=== PATIENT | female | born 1950 | race African-American/Black ===

== ENCOUNTER 2018-03-02 08:23 | Inpatient (IN) | payer BC ==
[~2018-03-02] VITALS: Ht 160 cm; Wt 72.6 kg
[2018-03-02] MEDS ORDERED: VERA80TA2 PO (08:41)
[2018-03-02] MEDS ORDERED: OMEP10CA3 PO (08:41)
[2018-03-02] MEDS ORDERED: METO-239 PO (08:41)
[2018-03-02] MEDS ORDERED: OMEG1CAP38 PO (08:41)
[2018-03-02] MEDS ORDERED: CRESTOR5 MG PO (08:41)
[2018-03-02] MEDS ORDERED: ASPI-630 PO (08:41)
--- NOTE | 2018-03-02 08:41 | EKG ---
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
[2018-03-02 08:49] LABS: BASO % 1 % (0-3); EOS # 0.1 x10^3/uL (0.0-0.7); EOS % 2 % (0-3); HEMATOCRIT 42.8 % (36.0-47.0); HEMOGLOBIN 14.4 g/dL (12.0-15.5); LYMPH # 1.8 x10^3/uL (1.0-4.8); LYMPH % 32 % (24-48); MEAN CORPUSCULAR HEMOGLOBIN 30 pg (25-35); MEAN CORPUSCULAR HGB CONC 34 g/dL (31-37); MEAN CORPUSCULAR VOLUME 90 fL (79-100); MONO # 0.4 x10^3/uL (0.0-1.1); MONO % 8 % (0-9); NEUT # 3.1 x10^3uL (1.8-7.7); NEUT % 57 % (31-73); PLATELET COUNT 187 x10^3/uL (140-400); RED BLOOD COUNT 4.75 x10^6/uL (3.50-5.40); WHITE BLOOD COUNT 5.4 x10^3/uL (4.0-11.0)
--- NOTE | 2018-03-02 08:57 | RAD ---
Chest AP portable at 0844: Reason for examination: Mid chest pain. Comparison is made to previous study dated 02/26/2013. The heart size is normal. Mediastinum is unremarkable. Lung dasilva are clear. No acute bony abnormalities are seen. Impression: No acute cardiopulmonary disease. Electronically signed by: Alexsandra Marsh MD (03/02/2018 8:53 AM) [facility]
[2018-03-02 08:58] LABS: CALCIUM 8.9 mg/dL (8.5-10.1); CREATININE 0.7 mg/dL (0.6-1.0); GFR 83.7; POTASSIUM 3.6 mmol/L (3.5-5.1)
--- NOTE | 2018-03-02 08:58 | PHYS DOC ---
Adult General Chief Complaint Chief Complaint: CHEST PAIN-CARDIAC NATURE HPI HPI Patient is a 68 year old female who presents with chest pain. Patient c/o sternal chest pressure which has been stuttering over the last couple weeks. Pain became more constant and severe last night and persisted until she awoke this am. No shortness of breath. No SHEPARD, orthopnea, or LE edema. No aggravating or alleviating factors. Patient had [facility] in 2011 and states she had one stent placed. No recent fever, chills, cough. Review of Systems Review of Systems Constitutional: Denies fever or chills Eyes: Denies change in visual acuity, redness, or eye pain HENT: Denies nasal congestion or sore throat Respiratory: Denies cough or shortness of breath Cardiovascular: No additional information not addressed in HPI GI: Denies abdominal pain, nausea, vomiting, bloody stools or diarrhea : Denies dysuria or hematuria Musculoskeletal: Denies back pain or joint pain Integument: Denies rash or skin lesions Neurologic: Denies headache, focal weakness or sensory changes Endocrine: Denies polyuria or polydipsia All other systems were reviewed and found to be within normal limits, except as documented in this note. Current Medications Current Medications Current Medications Medications (Trade) Dose Ordered Sig/Jese Start Time Stop Time Status Last Admin Dose Admin Aspirin (Children'S Aspirin) 324 mg 1X ONCE 03/02/18 09:00 03/02/18 09:02 DC 03/02/18 09:00 324 MG Nitroglycerin (Nitrostat) 0.4 mg PRN Q5MIN PRN 03/02/18 08:45 03/02/18 09:52 DC 03/02/18 09:37 0.4 MG Allergies Allergies Allergies Coded Allergies Type Severity Reaction Last Updated Verified Sulfa (Sulfonamide Antibiotics) Allergy Intermediate Hives 03/02/18 Yes erythromycin base Adverse Reaction Intermediate Nausea and Vomiting 03/02/18 Yes Physical Exam Physical Exam Constitutional: Well developed, well nourished, no acute distress, non-toxic appearance HENT: Normocephalic, atraumatic, bilateral external ears normal, oropharynx moist Eyes: PERRLA, EOMI, conjunctiva normal Neck: Normal range of motion, no tenderness Cardiovascular:Heart rate regular rhythm, no murmur Lungs & Thorax: Bilateral breath sounds clear to auscultation Abdomen: Bowel sounds normal, soft Skin: Warm, dry, no erythema, no rash Back: No tenderness, no CVA tenderness Extremities: trace edema bilateral LE's Neurologic: Alert and oriented X 3 Psychologic: Affect normal Current Patient Data Vital Signs Vital Signs Date Time Temp Pulse Resp B/P (MAP) Pulse Ox O2 Delivery O2 Flow Rate FiO2 03/02/18 08:27 97.7 68 18 164/89 (114) 100 Room Air 97.7 Lab Values Laboratory Tests Test 03/02/18 08:40 White Blood Count 5.4 x10^3/uL (4.0-11.0) Red Blood Count 4.75 x10^6/uL (3.50-5.40) Hemoglobin 14.4 g/dL (12.0-15.5) Hematocrit 42.8 % (36.0-47.0) Mean Corpuscular Volume 90 fL (79-100) Mean Corpuscular Hemoglobin 30 pg (25-35) Mean Corpuscular Hemoglobin Concent 34 g/dL (31-37) Red Cell Distribution Width 14.0 % (11.5-14.5) Platelet Count 187 x10^3/uL (140-400) Neutrophils (%) (Auto) 57 % (31-73) Lymphocytes (%) (Auto) 32 % (24-48) Monocytes (%) (Auto) 8 % (0-9) Eosinophils (%) (Auto) 2 % (0-3) Basophils (%) (Auto) 1 % (0-3) Neutrophils # (Auto) 3.1 x10^3uL (1.8-7.7) Lymphocytes # (Auto) 1.8 x10^3/uL (1.0-4.8) Monocytes # (Auto) 0.4 x10^3/uL (0.0-1.1) Eosinophils # (Auto) 0.1 x10^3/uL (0.0-0.7) Basophils # (Auto) 0.0 x10^3/uL (0.0-0.2) Prothrombin Time 12.1 SEC (11.7-14.0) Prothrombin Time INR 0.9 (0.8-1.1) PTT 28 SEC (24-38) Sodium Level 140 mmol/L (136-145) Potassium Level 3.6 mmol/L (3.5-5.1) Chloride Level 103 mmol/L (98-107) Carbon Dioxide Level 27 mmol/L (21-32) Anion Gap 10 (6-14) Blood Urea Nitrogen 24 mg/dL (7-20) H Creatinine 0.7 mg/dL (0.6-1.0) Estimated GFR (Cockcroft-Gault) 83.7 Glucose Level 105 mg/dL (70-99) H Calcium Level 8.9 mg/dL (8.5-10.1) Troponin I Quantitative 0.174 ng/mL (0.000-0.055) KX-Rnw-J-Type Natriuretic Peptide 129 pg/mL (0-124) H Laboratory Tests 03/02/18 08:40 Laboratory Tests 03/02/18 08:40 EKG EKG No STEMI Interpretation Time: 08:30 Radiology/Procedures Radiology/Procedures no acute findings on CXR Course & Med Decision Making Course & Med Decision Making Pertinent Labs and Imaging studies reviewed. (See chart for details) Patient is seen immediately on arrival to her room. + CP. Nitro and ASA ordered. EKG does not reveal STEMI. 09:30: All results are reviewed. The patient does not have acute changes in her EKG. She does have elevated troponin however. She is ordered to have heparin bolus and drip. I discussed this patient with the hospital physician, Dr. Quinn, and the patient will be admitted. Cardiology consult was placed. Dragon Disclaimer Dragon Disclaimer This electronic medical record was generated, in whole or in part, using a voice recognition dictation system. Departure Departure Referrals: ALYSSA GROSS (PCP) VANESSA LYON DO Mar 02, 2018 08:58
[2018-03-02] MEDS: NITROGLYCERIN SUBLINGUAL 0.4 MG BOTTLE OF 25. SL PRN ×2 (09:00→09:37)
[2018-03-02] MEDS ORDERED: ASPIRIN CHEWABLE 81 MG TABLET. PO ONE (09:00)
[2018-03-02 09:03] LABS: PROTHROMBIN TIME PATIENT 12.1 SEC (11.7-14.0)
[2018-03-02] MEDS ORDERED: MORPHINE SULFATE 4 MG/ML VIAL. IV PRN (10:00)
[2018-03-02] MEDS ORDERED: ONDANSETRON PF 4 MG/2 ML VIAL. IV PRN (10:00)
[2018-03-02] MEDS ORDERED: NITROGLYCERIN SUBLINGUAL 0.4 MG BOTTLE OF 25. SL PRN (10:00)
[2018-03-02] MEDS ORDERED: HEPARIN for IV BOLUS 10,000 UNIT/10 ML VIAL. IV ONE (10:00)
[2018-03-02] MEDS ORDERED: HEPARIN 25,000UTS/500ML PREMIX 500 ML IV PRN (10:00)
[2018-03-02 11:32] VITALS: BP 128/72
[2018-03-02] MEDS ORDERED: VERA180T49 PO (11:41)
[2018-03-02] MEDS ORDERED: CRESTOR40 MG PO (11:41)
[2018-03-02] MEDS ORDERED: OMEP20TA8 PO (11:41)
[2018-03-02] MEDS: VERAPAMIL SR 180 MG TABLET.ER. PO SCH (11:59)
[2018-03-02] MEDS: METOPROLOL SUCC 24HR ER 25 MG TAB.ER.24H. PO SCH (11:59)
[2018-03-02] MEDS: PANTOPRAZOLE 40 MG TABLET.DR. PO SCH (11:59)
--- NOTE | 2018-03-02 12:19 | PDOC2 ---
CONSULT Date of Consult Date of Consult DATE: 03/02/18 TIME: 12:18 Reason for Consult Reason for Consult: Chest pain Referring Physician Referring Physician: Dr. Quinn Identification/Chief Complaint Chief Complaint Chest pain Source Source: Chart review, Patient History of Present Illness Reason for Visit: 68-year-old female presented with retrosternal chest pressure slightly worse with exertion has been going on for last 1-2 weeks but was worse last night. The pain was relieved with nitroglycerin in the emergency room. She denied any orthopnea/PND, palpitations or syncope. Past Medical History Past Medical History Coronary artery disease s/p PCI/stent in 2010 Hypertension Hyperlipidemia Gastroesophageal reflux disease Family History Family History Coronary artery disease and hypertension Social History Social History Patient is a nonsmoker and a nondrinker Current Medications Current Medications Current Medications Aspirin (Children'S Aspirin) 324 mg 1X ONCE PO Last administered on 03/02/18at 09:00; Start 03/02/18 at 09:00; Stop 03/02/18 at 09:02; Status DC Nitroglycerin (Nitrostat) 0.4 mg PRN Q5MIN PRN SL CHEST PAIN Last administered on 03/02/18at 09:37; Start 03/02/18 at 08:45; Stop 03/02/18 at 09:52; Status DC Heparin Sodium (Porcine) (Heparin Sodium) 4,000 unit 1X ONCE IV Last administered on 03/02/18at 10:17; Start 03/02/18 at 10:00; Stop 03/02/18 at 10:01 ; Status DC Heparin Sodium/ Dextrose 500 ml @ 0 mls/hr CONT PRN IV SEE I/O RECORD Last administered on 03/02/18at 10:25; Start 03/02/18 at 10:00 Ondansetron HCl (Zofran) 4 mg PRN Q8HRS PRN IV NAUSEA/VOMITING; Start 03/02/18 at 10:00; Stop 03/03/18 at 09:59 Morphine Sulfate (Morphine Sulfate) 4 mg PRN Q2HR PRN IV PAIN Last administered on 03/02/18at 10:58; Start 03/02/18 at 10:00; Stop 03/03/18 at 09:59 Nitroglycerin (Nitrostat) 0.4 mg PRN Q5MIN PRN SL CHEST PAIN; Start 8/19/18 at 10:00; Stop 03/03/18 at 09:59 Aspirin (Children'S Aspirin) 81 mg DAILY PO ; Start 03/03/18 at 09:00 Metoprolol Succinate (Toprol Xl) 25 mg DAILY PO ; Start 03/02/18 at 12:30 Pantoprazole Sodium (Protonix) 40 mg DAILYAC PO ; Start 03/02/18 at 12:30 Verapamil HCl (Calan Sr) 180 mg DAILY PO ; Start 03/02/18 at 12:30 Active Scripts Active Reported Verapamil Er (Verapamil Hcl) 180 Mg Tablet.er 180 Mg PO DAILY Omeprazole 20 Mg Tablet.dr 20 Mg PO DAILY Crestor (Rosuvastatin Calcium) 40 Mg Tablet 40 Mg PO HS [place] 3 Fish Oil Softgel ([place]-3 Fatty Acids/Fish Oil) 1 Each Capsule.dr Unknown Dose PO DAILY Metoprolol Succinate ( Xl ) (Metoprolol Succinate) 25 Mg Tab.er.24h Unknown Dose PO DAILY Aspirin 81 Mg Tab.chew 1 Tab PO DAILY Allergies Allergies: Coded Allergies: Sulfa (Sulfonamide Antibiotics) (Verified Allergy, Intermediate, Hives, ) erythromycin base (Verified Adverse Reaction, Intermediate, Nausea and Vomiting, 03/02/18) ROS PSYCHOLOGICAL ROS: No: Hallucinations Eyes: No Loss of vision HEENT: No: Epistaxis Respiratory: No: Hemoptysis Cardiovascular: yes Chest Pain Gastrointestinal: No Vomiting Genitourinary: No Hematuria Neurological: No Seizures Skin: No Rash Physical Exam General: Alert, Oriented X3 HEENT: Atraumatic, PERRLA Lungs: Clear to auscultation Heart: Regular rate Abdomen: Soft Extremities: No edema Psych/Mental Status: Mood NL Vitals VITALS Vital Signs Date Time Temp Pulse Resp B/P (MAP) Pulse Ox O2 Delivery O2 Flow Rate FiO2 03/02/18 11:34 16 98 Room Air 03/02/18 11:32 98.7 55 128/72 (90) 98.7 Labs Labs Laboratory Tests Test 03/02/18 08:40 White Blood Count 5.4 x10^3/uL (4.0-11.0) Red Blood Count 4.75 x10^6/uL (3.50-5.40) Hemoglobin 14.4 g/dL (12.0-15.5) Hematocrit 42.8 % (36.0-47.0) Mean Corpuscular Volume 90 fL (79-100) Mean Corpuscular Hemoglobin 30 pg (25-35) Mean Corpuscular Hemoglobin Concent 34 g/dL (31-37) Red Cell Distribution Width 14.0 % (11.5-14.5) Platelet Count 187 x10^3/uL (140-400) Neutrophils (%) (Auto) 57 % (31-73) Lymphocytes (%) (Auto) 32 % (24-48) Monocytes (%) (Auto) 8 % (0-9) Eosinophils (%) (Auto) 2 % (0-3) Basophils (%) (Auto) 1 % (0-3) Neutrophils # (Auto) 3.1 x10^3uL (1.8-7.7) Lymphocytes # (Auto) 1.8 x10^3/uL (1.0-4.8) Monocytes # (Auto) 0.4 x10^3/uL (0.0-1.1) Eosinophils # (Auto) 0.1 x10^3/uL (0.0-0.7) Basophils # (Auto) 0.0 x10^3/uL (0.0-0.2) Prothrombin Time 12.1 SEC (11.7-14.0) Prothromb Time International Ratio 0.9 (0.8-1.1) Activated Partial Thromboplast Time 28 SEC (24-38) Sodium Level 140 mmol/L (136-145) Potassium Level 3.6 mmol/L (3.5-5.1) Chloride Level 103 mmol/L (98-107) Carbon Dioxide Level 27 mmol/L (21-32) Anion Gap 10 (6-14) Blood Urea Nitrogen 24 mg/dL (7-20) Creatinine 0.7 mg/dL (0.6-1.0) Estimated GFR (Cockcroft-Gault) 83.7 Glucose Level 105 mg/dL (70-99) Calcium Level 8.9 mg/dL (8.5-10.1) Troponin I Quantitative 0.174 ng/mL (0.000-0.055) OW-Bnv-G-Type Natriuretic Peptide 129 pg/mL (0-124) Laboratory Tests Test 03/02/18 08:40 White Blood Count 5.4 x10^3/uL (4.0-11.0) Red Blood Count 4.75 x10^6/uL (3.50-5.40) Hemoglobin 14.4 g/dL (12.0-15.5) Hematocrit 42.8 % (36.0-47.0) Mean Corpuscular Volume 90 fL (79-100) Mean Corpuscular Hemoglobin 30 pg (25-35) Mean Corpuscular Hemoglobin Concent 34 g/dL (31-37) Red Cell Distribution Width 14.0 % (11.5-14.5) Platelet Count 187 x10^3/uL (140-400) Neutrophils (%) (Auto) 57 % (31-73) Lymphocytes (%) (Auto) 32 % (24-48) Monocytes (%) (Auto) 8 % (0-9) Eosinophils (%) (Auto) 2 % (0-3) Basophils (%) (Auto) 1 % (0-3) Neutrophils # (Auto) 3.1 x10^3uL (1.8-7.7) Lymphocytes # (Auto) 1.8 x10^3/uL (1.0-4.8) Monocytes # (Auto) 0.4 x10^3/uL (0.0-1.1) Eosinophils # (Auto) 0.1 x10^3/uL (0.0-0.7) Basophils # (Auto) 0.0 x10^3/uL (0.0-0.2) Prothrombin Time 12.1 SEC (11.7-14.0) Prothromb Time International Ratio 0.9 (0.8-1.1) Activated Partial Thromboplast Time 28 SEC (24-38) Sodium Level 140 mmol/L (136-145) Potassium Level 3.6 mmol/L (3.5-5.1) Chloride Level 103 mmol/L (98-107) Carbon Dioxide Level 27 mmol/L (21-32) Anion Gap 10 (6-14) Blood Urea Nitrogen 24 mg/dL (7-20) Creatinine 0.7 mg/dL (0.6-1.0) Estimated GFR (Cockcroft-Gault) 83.7 Glucose Level 105 mg/dL (70-99) Calcium Level 8.9 mg/dL (8.5-10.1) Troponin I Quantitative 0.174 ng/mL (0.000-0.055) QH-Njh-B-Type Natriuretic Peptide 129 pg/mL (0-124) Assessment/Plan Assessment/Plan 1. Unstable angina in a patient with known history of coronary artery disease s /p PCI/stent in 2010. EKG without acute changes. Patient is presently chest pain -free. Continue heparin infusion per protocol and plan for cardiac catheterization and possible angioplasty tomorrow. Risks and benefits were explained. 2. Hypertension: Better controlled since admission 3. Hyperlipidemia: Statins therapy Thank you for your consultation LUIS DANIEL MCMILLAN MD Mar 02, 2018 12:19
--- NOTE | 2018-03-02 14:54 | HP ---
ADMIT DATE: 03/02/2018 CHIEF COMPLAINT: Chest pain. HISTORY OF PRESENT ILLNESS: The patient is a pleasant 68-year-old female who presented with chest pain, rated 7/10. She has associated weakness and nausea. It has been occurring off and on for a few hours. She came in by ambulance. While she was in the ER, she was noted to have elevated troponin of 0.17. I have discussed the case with ER physician. We are going to admit the patient with consultation to Cardiology. PAST MEDICAL HISTORY: Hyperlipidemia, hypertension, GERD, coronary artery disease with a previous stent. ALLERGIES: SULFA AND ERYTHROMYCIN. FAMILY HISTORY: Coronary artery disease. SOCIAL HISTORY: She does not drink, smoke or take drugs. MEDICATIONS: Reviewed, please refer to the MRAD. REVIEW OF SYSTEMS: GENERAL: No history of weight change, weakness or fevers. SKIN: No bruising, hair changes or rashes. EYES: No blurred, double or loss of vision. NOSE AND THROAT: No history of nosebleeds, hoarseness or sore throat. HEART: The patient complains of chest pain. LUNGS: Denies cough, hemoptysis, wheezing or shortness of breath. GASTROINTESTINAL: Denies changes in appetite, nausea, vomiting, diarrhea or constipation. GENITOURINARY: No history of frequency, urgency, hesitancy or nocturia. NEUROLOGIC: Denies history of numbness, tingling, tremor or weakness. PSYCHIATRIC: No history of panic, anxiety or depression. ENDOCRINE: No history of heat or cold intolerance, polyuria or polydipsia. EXTREMITIES: Denies muscle weakness, joint pain, pain on walking or stiffness. PHYSICAL EXAMINATION: VITAL SIGNS: Temperature afebrile, pulse 50, respirations 16, blood pressure 120/72. GENERAL: She is alert, cooperative. HEART: Normal S1, S2. LUNGS: Clear. ABDOMEN: Soft. EXTREMITIES: No edema. SKIN: No rash. ENDOCRINE: No thyromegaly. LYMPHATICS: No cervical nodes. HEMATOPOIETIC: No bruising. LABORATORY DATA: Hematology is normal. Electrolytes are normal other than a BUN of 24. Troponin is 0.174. ASSESSMENT AND PLAN: Acute myocardial infarction. The patient is being admitted. We will consult Cardiology, serial enzymes, serial EKGs, IV heparin. Suspect she might need to go to the cleaner laboratory equipment. We are awaiting Dr. Cardona's input. DINORA BUNCH DO DR: Chelsea JOB#: [id number] / [id number]
[2018-03-02 15:05] VITALS: BP 111/66
[2018-03-02 19:30] VITALS: BP 107/69
[2018-03-02] MEDS ORDERED: VERAPAMIL SR 180 MG TABLET.ER. PO ONE (19:45)
[2018-03-02 22:40] VITALS: BP 109/71
[2018-03-03] VITALS (10 sets, daily range): BP systolic 103–131; BP diastolic 60–75
[2018-03-03 05:24] LABS: BASO % 1 % (0-3); EOS # 0.1 x10^3/uL (0.0-0.7); EOS % 2 % (0-3); HEMATOCRIT 38.8 % (36.0-47.0); HEMOGLOBIN 13.1 g/dL (12.0-15.5); LYMPH # 1.8 x10^3/uL (1.0-4.8); LYMPH % 37 % (24-48); MEAN CORPUSCULAR HEMOGLOBIN 31 pg (25-35); MEAN CORPUSCULAR HGB CONC 34 g/dL (31-37); MEAN CORPUSCULAR VOLUME 91 fL (79-100); MONO # 0.4 x10^3/uL (0.0-1.1); MONO % 9 % (0-9); NEUT # 2.5 x10^3uL (1.8-7.7); NEUT % 52 % (31-73); PLATELET COUNT 163 x10^3/uL (140-400); RED BLOOD COUNT 4.28 x10^6/uL (3.50-5.40); RED CELL DISTRIBUTION WIDTH 13.9 % (11.5-14.5); WHITE BLOOD COUNT 4.8 x10^3/uL (4.0-11.0)
[2018-03-03 05:48] LABS: CALCIUM 8.5 mg/dL (8.5-10.1); CREATININE 0.7 mg/dL (0.6-1.0); GFR 101.3; POTASSIUM 3.9 mmol/L (3.5-5.1)
[2018-03-03] MEDS: PANTOPRAZOLE 40 MG TABLET.DR. PO SCH (08:59)
[2018-03-03] MEDS ORDERED: ASPIRIN CHEWABLE 81 MG TABLET. PO SCH (09:00)
[2018-03-03] MEDS: VERAPAMIL SR 180 MG TABLET.ER. PO SCH (09:00)
[2018-03-03] MEDS: METOPROLOL SUCC 24HR ER 25 MG TAB.ER.24H. PO SCH (09:00)
--- NOTE | 2018-03-03 12:10 | PDOC ---
MODERATE SEDATION ASSESSMENT RISKS/ALTERNATIVES Risks/Alternatives Risks and alternatives of this type of sedation and procedure discussed with: RISK/ALTERNATIVES: Patient H & P ON CHART H & P H & P on chart and reviewed for co-morbid conditions and appropriate labs. H&P ON CHART: Yes STATUS PREG STATUS ASSESSED: N/A MEDS/ALLERGIES REVIEWED Meds/Allergies Reviewed Medications and Allergies including time and route of recently administered narcotics and sedatives. MEDS/ALLERGIES REVIEWED: Yes ASA RATING ASA RATING: III AIRWAY ASSESSMENT Airway Assessment Airway patency, oral function limitations, presence of caps, crowns, dentures, partials, and ability to extend neck assessed. AIRWAY ASSESSMENT: Yes MALLAMPATI SCORE MALLAMPATI SCORE: II PRE-SEDATION ASSESSMENT PRE-SEDATION ASSESSMENT: Yes LUIS DANIEL MCMILLAN MD Mar 03, 2018 12:10
[2018-03-03] MEDS ORDERED: HEPARIN for IV BOLUS 10,000 UNIT/10 ML VIAL. ONE (13:09)
[2018-03-03] MEDS ORDERED: VERAPAMIL 5 MG/2 ML VIAL. ONE (13:09)
[2018-03-03] MEDS ORDERED: MIDAZOLAM HCL/PF 2 MG/2 ML VIAL. ONE (13:09)
[2018-03-03] MEDS ORDERED: fentaNYL PF VIAL 100 MCG/2 ML VIAL ONE (13:09)
[2018-03-03] MEDS ORDERED: IODIXANOL 320 MG/ML 100 ML VIAL. ONE (13:47)
[2018-03-03] MEDS ORDERED: IODIXANOL 320 MG/ML 100 ML VIAL. IART ONE (14:00)
[2018-03-03] MEDS ORDERED: fentaNYL PF VIAL 100 MCG/2 ML VIAL IV ONE (14:00)
[2018-03-03] MEDS ORDERED: MIDAZOLAM HCL/PF 2 MG/2 ML VIAL. IV ONE (14:00)
[2018-03-03] MEDS ORDERED: LIDOCAINE 1% PF 30 ML VIAL. INJ ONE (14:00)
[2018-03-03] MEDS ORDERED: IV 1/2 NORMAL SALINE 1,000 ML IV SCH (14:04)
[2018-03-03] MEDS ORDERED: NITROGLYCERIN SUBLINGUAL 0.4 MG BOTTLE OF 25. SL PRN (14:15)
--- NOTE | 2018-03-03 14:36 | CARD ---
MR#: [id number] Date of Study: 03/03/2018 Ordering Physician: LUIS DANIEL MCMILLAN, Referring Physician: DINORA BUNCH Tech: RT Surinder (R) APPROVED REPORT Technologist: Pia Her RT (R) Nurse: Vijaya Meza R.N. Procedure(s) performed: Left heart catheterization, selective coronary angiography and left ventricul ography Moderate sedation: 34 min INDICATION The indication(s) include : unstable angina . PROCEDURE NARRATIVE After explaining the risks, benefits and alternative options, informed consent was obtained from lisa ent. Patient was brought to the cardiac Supply Chain Consultant and her right groin was prepped and draped in the u sual fashion. 20 mL of 2% lidocaine was infiltrated into the skin and subcutaneous tissues for local anesthesia. Arterial access was obtained in the right common femoral artery and a 6 [place] sheath was inserted. 6 [place] JL4 and 6 [place] JR4 catheters were used to perform selective angiography of the left and right coronary arteries. [place] pigtail catheter was used to perform left ventriculography. Patient tolerated the procedure well. Hemostasis was achieved using Angio-Seal. There were no immedi ate complications. The following findings were noted. FINDINGS 1. Hemodynamics: Left ventricular end-diastolic pressure of 16 mmHg. No pullback gradient across th e aortic valve. 2. Left ventriculography: Normal left ventricle systolic function with ejection fraction estimated at 60%. No significant mitral regurgitation seen. 3. Coronary angiography: a. The left main coronary artery arose from the left sinus of Valsalva, gave rise to the left anteri or descending and left circumflex arteries and did not show any significant stenosis. b. The left anterior descending artery showed widely patent previously placed stent in the midsegmen t. c. The left circumflex artery did not show any significant stenosis. d. The right coronary artery was a large and dominant vessel arising from the right sinus of Valsalv a that did not show any significant stenosis. Conclusion 1. Widely patent previously placed stent in the left anterior descending artery without any signific ant stenosis. 2. Normal left ventricle systolic function with ejection fraction estimated at 60%. Recommendations Medical Therapy Signed by : Luis Daniel Pasnoori, Electronically Approved : 03/03/2018 14:35:15
--- NOTE | 2018-03-03 15:09 | PDOC3 ---
Discharge Summary [facility] Date of Admission: Mar 02, 2018 Discharge Date: Mar 03, 2018 Admitting Diagnosis unstable angina h/o CAD WITH 1 stent htn hld CONSULTS card Brief Hospital Course Ms. Gonzalez is a 68 old f, with h/o stent, comes for chest pain CE neg. on heparin drip, now pain free. cath done, neg. dc home . dc time 35min GENERAL: She is alert, cooperative. HEART: Normal S1, S2. LUNGS: Clear. ABDOMEN: Soft. EXTREMITIES: No edema. SKIN: No rash. ENDOCRINE: No thyromegaly. LYMPHATICS: No cervical nodes. HEMATOPOIETIC: No bruising. Disposition home CONDITION AT DISCHARGE: Improved Scheduled Aspirin (Aspirin), 1 TAB PO DAILY, (Reported) Metoprolol Succinate (Metoprolol Succinate ( Xl )), Unknown Dose PO DAILY, ( Reported) Apex-3 Fatty Acids/Fish Oil ([place] 3 Fish Oil Softgel), Unknown Dose PO DAILY, (Reported) Omeprazole (Omeprazole), 20 MG PO DAILY, (Reported) Rosuvastatin Calcium (Crestor), 40 MG PO HS, (Reported) Verapamil Hcl (Verapamil Er), 180 MG PO DAILY, (Reported) Discontinued Medications Omeprazole (Omeprazole), Unknown Dose PO DAILY, (Reported) Discontinued Reason: Prescription changed Rosuvastatin Calcium (Crestor), Unknown Dose PO DAILY, (Reported) Discontinued Reason: Prescription changed Verapamil Hcl (Verapamil Hcl), Unknown Dose PO BID, (Reported) Discontinued Reason: Prescription changed AMAN CURRY MD Mar 03, 2018 15:09
--- NOTE | 2018-03-03 17:08 | CARD ---
MR#: [id number] Date of Study: 03/03/2018 Ordering Physician: LUIS DANIEL MCMILLAN, Referring Physician: DINORA BUNCH Tech: Jessica Valle APPROVED REPORT EXAM: Two-dimensional and M-mode echocardiogram with Doppler and color Doppler. Other Information Quality : GoodHR: 55bpm INDICATION Non STEMI 2D DIMENSIONS RVDd1.6 (2.9-3.5cm)Left Atrium(2D)2.9 (1.6-4.0cm) IVSd0.8 (0.7-1.1cm)Aortic Root(2D)3.0 (2.0-3.7cm) LVDd4.3 (3.9-5.9cm)LVOT Diameter1.9 (1.8-2.4cm) PWd0.7 (0.7-1.1cm)LVDs2.3 (2.5-4.0cm) FS (%) 47.0 %SV66.6 ml LVEF(%)78.7 (>50%) Aortic Valve AoV Peak Caleb.136.2cm/sAoV VTI32.4cm AO Peak GR.7.4mmHgLVOT VTI 21.44cm AO Mean GR.5mmHg Mitral Valve MV E Zwygmdvj89.5cm/sMV DECEL XWLK187nd MV A Sqegcmjo69.3cm/sE/A Ratio0.9 TDI Lateral E' P. V12.57cm/sMedial E' P. V13.81cm/s E/Lateral E'6.0E/Medial E'5.5 Tricuspid Valve TR P. Jjccecnm674sb/sRAP GQSCUREZ6mgPw TR Peak Gr.87bhQjJDYH08ewQf Pulmonary Vein S1 Jcrixekm42.1cm/s LEFT VENTRICLE The left ventricle is normal size. There is normal left ventricular wall thickness. The left ventricu lar systolic function is normal and the ejection fraction is within normal range. The Ejection Fracti on is 55-60%. There is normal LV segmental wall motion. Transmitral Doppler flow pattern is Grade II- pseudonormal filling dynamics. RIGHT VENTRICLE The right ventricle is normal size. There is normal right ventricular wall thickness. The right ventr icular systolic function is normal. ATRIA The left atrium size is normal. The right atrium size is normal. The interatrial septum is intact wit h no evidence for an atrial septal defect or patent foramen ovale as noted on 2-D or Doppler imaging. AORTIC VALVE The aortic valve is sclerotic. Doppler and Color Flow revealed no significant aortic regurgitation. T here is no significant aortic valvular stenosis. MITRAL VALVE The mitral valve is normal in structure and function. There is no mitral valve stenosis. Doppler and Color Flow revealed no mitral valve regurgitation noted. TRICUSPID VALVE The tricuspid valve is normal in structure and function. Doppler and Color Flow revealed trace tricus pid regurgitation. There is no tricuspid valve stenosis. PULMONIC VALVE Doppler and Color Flow revealed no pulmonic valvular regurgitation. There is no pulmonic valvular renita nosis. GREAT VESSELS The aortic root is normal in size. PERICARDIAL EFFUSION There is no evidence of significant pericardial effusion. Critical Notification Critical Value: No <Conclusion> The left ventricular systolic function is normal and the ejection fraction is within normal range. Th e Ejection Fraction is 55-60%. There is normal LV segmental wall motion. Signed by : Modesto Leal, Electronically Approved : 03/03/2018 17:06:43
== END 2018-03-03 18:39 | disposition home or self-care (01) | DRG 287 ==
LOC: ER 08:23 → 2 SOUTH 09:25
PROVIDERS: ADMIT Internal Medicine; ATTEND Internal Medicine
PROC: 4A023N7 Measurement of Cardiac Sampling and Pressure, Left Heart, Percutaneous Approach (ICD-10-PCS; principal; 2018-03-03)
PROC: B2111ZZ Fluoroscopy of Multiple Coronary Arteries using Low Osmolar Contrast (ICD-10-PCS; 2018-03-03)
PROC: B2151ZZ Fluoroscopy of Left Heart using Low Osmolar Contrast (ICD-10-PCS; 2018-03-03)
DX: I25.110 Atherosclerotic heart disease of native coronary artery with unstable angina pectoris (principal); E78.5 Hyperlipidemia, unspecified; I10 Essential (primary) hypertension; K21.9 Gastro-esophageal reflux disease without esophagitis; I25.2 Old myocardial infarction; Z88.1 Allergy status to other antibiotic agents; Z88.2 Allergy status to sulfonamides; Z95.5 Presence of coronary angioplasty implant and graft; Z82.49 Family history of ischemic heart disease and other diseases of the circulatory system
CPT/HCPCS: 36415; 71045; 80048; 83880; 84484; 85025; 85520; 85610; 85730; 93005; 93306; 93458; 99152; 99153; C1769; C1771; C1892; G0269; J1644; J2250; J2270; J3010; 99285-25

== ENCOUNTER 2021-09-24 10:32 | Observation (INO) | payer BC, OTHER ==
[~2021-09-24] VITALS: Ht 158.8 cm; Wt 69.5 kg
[~2021-09-24 10:32] MED LIST: ASPI-630 PO; CRESTOR40 MG PO; CRESTOR5 MG PO; METO-239 PO; OMEG1CAP38 PO; OMEP10CA4 PO; OMEP20TA8 PO; VERA180T34 PO; VERA80TA4 PO
--- NOTE | 2021-09-24 10:38 | PHYS DOC ---
Past Medical History Past Medical History: GERD, High Cholesterol, Heart Disease, Hypertension, [place] Past Surgical History: Other Additional Past Surgical Histo: MYOMECTOMY Smoking Status: Never Smoker Alcohol Use: None Drug Use: None General Adult HPI: HPI: Patient is a 71 year old male who presents with intermittent chest pain, as well as left-sided thoracic back pain. Symptoms began , progressively worsened. She reported the pain usually occurred with movement and exertion, but the pain worsened acutely today, and it is occurring at rest. She reports mild associated dyspnea. She does describe some mild pleuritic pain. She denies cough or hemoptysis. She denies diaphoresis, abdominal pain, nausea or vomiting. She denies dizziness, syncope. She denies lower extremity pain or swelling. She has had a previous non-ST elevation [place] several years ago, she has a stent, she describes her right coronary artery stent. She reports compliance with all medication. She has not been on Plavix for many years. 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 She denies having any recent provocative testing, such as stress testing or recent cardiac catheterization. She admits that the pain she is experiencing currently does not feel like her previous [place] symptoms. Review of Systems: Review of Systems: Constitutional: Denies fever or chills. [] HENT: Denies nasal congestion or sore throat. [] Respiratory: Denies cough or hemoptysis. Mild shortness of breath. Cardiovascular: Chest pain GI: Denies abdominal pain, nausea, vomiting : Denies urinary symptoms Musculoskeletal: Denies back pain or joint pain. [] Integument: Denies rash. [] Neurologic: Denies headache, focal weakness or sensory changes. Denies dizziness or syncope. Psychiatric: Denies depression or anxiety. [] Heart Score: C/O Chest Pain: Yes HEART Score for Chest Pain: HEART Score for Chest Pain Response (Comments) Value History Moderately Suspicious 1 ECG Nonspecific Repolarizatio 1 Age > 65 2 Risk Factors >3 Risk Factors or Hx CAD 2 Total 6 Risk Factors: Risk Factors: DM, Current or recent (<one month) smoker, HTN, HLP, family history of CAD, obesity. Risk Scores: Score 0 - 3: 2.5% MACE over next 6 weeks - Discharge Home Score 4 - 6: 20.3% MACE over next 6 weeks - Admit for Clinical Observation Score 7 - 10: 72.7% MACE over next 6 weeks - Early Invasive Strategies Allergies: Allergies: Allergies Coded Allergies Type Severity Reaction Last Updated Verified Sulfa (Sulfonamide Antibiotics) Allergy Intermediate Hives 03/02/18 Yes erythromycin base Adverse Reaction Intermediate Nausea and Vomiting 03/02/18 Yes Physical Exam: PE: Constitutional: Well developed, well nourished, no acute distress, non-toxic appearance. [] HENT: Normocephalic, atraumatic Eyes: Sclera are clear and anicteric. Neck: Normal range of motion, no tenderness, supple, no stridor. Achy midline. No JVD Cardiovascular:Heart rate regular rhythm, +2 radial and +2 posterior tibial pulses bilaterally. No edema. Warm and well-perfused Lungs & Thorax: Bilateral breath sounds clear to auscultation, no rales, rhonchi or wheezes. Equal chest rise. No evidence of chest wall trauma Abdomen: Abdomen is soft, nondistended, nontender to palpation. No palpable masses organomegaly. No palpable pulsatile mass. No CVA tenderness. Skin: Warm, dry, no erythema, no rash. [] Back: No tenderness, no CVA tenderness. [] Extremities: No tenderness, no cyanosis, no clubbing, ROM intact, no edema. No calf tenderness. Neurologic: Alert and oriented X 3, normal motor function, normal sensory function, no focal deficits noted. [] Psychologic: Affect normal, judgement normal, mood normal. He is pleasant and cooperative EKG: EKG: EKG is interpreted at 1040 Rhythm is sinus Rate is 74 bpm [place] is left No STEMI Radiology/Procedures: Radiology/Procedures: IMAGING REPORT Signed PATIENT: JOE STERLINGUNT: [id number] : 1950 LOCATION: ER AGE: 71 SEX: F EXAM STATUS: PRE ER ORD. PHYSICIAN: DONIS GRULLON DO REASON: chest pain, back pain PROCEDURE: PORTABLE CHEST 1V EXAM: Chest, single view. HISTORY: Chest pain. COMPARISON: 03/02/2018 FINDINGS: A frontal view of the chest is obtained. There is no infiltrate, pleural effusion or pneumothorax. The heart is normal in size. IMPRESSION: No acute pulmonary finding. Electronically signed by: Shirley Vang MD (09/24/2021 11:10 AM) [facility] DICTATED and SIGNED BY: SHIRLEY VANG MD DATE: 09/24/21 [id number] 0 IMAGING REPORT Signed PATIENT: JOE STERLINGUNT: [id number] : 1950 LOCATION: 6 SOUTH AGE: 71 SEX: F EXAM STATUS: ADM IN ORD. PHYSICIAN: DONIS GRULLON DO REASON: chest pain, back pain, elevated d dimer;OMNI 350,100ML PROCEDURE: CT ANGIOGRAPHY CHEST CTA scan of the Chest with Contrast (Pulmonary Embolism protocol) 09/25/2019 2 Clinical History: Chest pain. Elevated d-dimer. Technique: After the intravenous administration of 100 cc of Omnipaque 350, contiguous, 0.625 mm axial sections were obtained through the chest. 2 mm axial and 3D MIP coronal and sagittal reconstructed images were obtained. One or more of the following individualized dose reduction techniques were utilized for this study: 1. Automated exposure control. 2. Adjustment of the mA and/or kV according to patient size. 3. Use of iterative reconstruction technique. Findings: Comparison is made to patient's portable chest radiograph performed earlier today. No filling defect is seen within the major branches of either pulmonary artery. There is no CT evidence of pulmonary embolism. The heart is mildly enlarged. Atherosclerotic calcification thoracic aorta is seen. There is a common origin of the left common carotid and right common carotid arteries from the thoracic aortic arch. The right subclavian artery originates as the last branch of the thoracic aortic arch and passes posterior to the thoracic esophagus. These findings are normal variations. The thyroid gland is slightly heterogeneous. Minimal dependent subsegmental atelectasis is seen involving both lungs. No area of consolidation, pleural effusion or pneumothorax is seen. Images through the upper abdomen demonstrate decreased attenuation liver parenchyma consistent with fatty infiltration. The 2 cm somewhat oval-shaped low-attenuation structure is seen involving the lateral aspect of the right lower liver which may represent a hepatic cyst. Degenerative changes are seen involving the thoracic spine. Impression: There is no CT evidence of pulmonary embolism. Electronically signed by: Scott Cuevas MD (09/24/2021 1:05 PM) [id number] DICTATED and SIGNED BY: SCOTT CUEVAS MD DATE: 09/24/21 [id number] Course & Med Decision Making: Course & Med Decision Making Pertinent Labs and Imaging studies reviewed. (See chart for details) Patient had not yet taken her aspirin today, so she is given this. She is given sublingual nitroglycerin. She reports improvement in pain. Blood pressure is stable and improved. I have discussed the findings, differential diagnosis and plan of care with her. She is comfortable to plan for admission, cardiology consultation and serial troponin exams. She is accepted for admission by Dr. Dixon. Redd Disclaimer: Redd Disclaimer: This electronic medical record was generated, in whole or in part, using a voice recognition dictation system. Departure Departure Impression: Primary Impression: Chest pain Qualified Codes: R07.9 - Chest pain, unspecified Additional Impressions: Coronary artery disease Qualified Codes: I25.10 - Atherosclerotic heart disease of [place] coronary artery without angina pectoris History of myocardial infarction Disposition: ADMITTED INPATIENT Admitting Physician: GABRIELLE (Dr. Dixon) Condition: STABLE Referrals: SHANELLE CATALAN MD (PCP) DONIS GRULLON DO Sep 24, 2021 10:38
[2021-09-24] MEDS ORDERED: ASPIRIN CHEWABLE 81 MG TABLET. PO ONE (11:00)
--- NOTE | 2021-09-24 11:13 | RAD ---
EXAM: Chest, single view. HISTORY: Chest pain. COMPARISON: 03/02/2018 FINDINGS: A frontal view of the chest is obtained. There is no infiltrate, pleural effusion or pneumo thorax. The heart is normal in size. IMPRESSION: No acute pulmonary finding. Electronically signed by: Lidia Lovett MD (09/24/2021 11:10 AM) [facility]
[2021-09-24 11:18] LABS: BASO % 1 % (0-3); CALCIUM 8.9 mg/dL (8.5-10.1); CREATININE 0.7 mg/dL (0.6-1.0); EOS # 0.1 x10^3/uL (0.0-0.7); EOS % 1 % (0-3); GFR 100.4; HEMATOCRIT 43.5 % (36.0-47.0); HEMOGLOBIN 13.8 g/dL (12.0-15.5); LYMPH # 1.7 x10^3/uL (1.0-4.8); LYMPH % 29 % (24-48); MEAN CORPUSCULAR HEMOGLOBIN 30 pg (25-35); MEAN CORPUSCULAR HGB CONC 32 g/dL (31-37); MEAN CORPUSCULAR VOLUME 95 fL (79-100); MONO # 0.5 x10^3/uL (0.0-1.1); MONO % 8 % (0-9); NEUT # 3.7 x10^3/uL (1.8-7.7); NEUT % 62 % (31-73); PLATELET COUNT 150 x10^3/uL (140-400); POTASSIUM 3.7 mmol/L (3.5-5.1); RED CELL DISTRIBUTION WIDTH 14.3 % (11.5-14.5)
[2021-09-24] MEDS: NITROGLYCERIN SUBLINGUAL 0.4 MG BOTTLE OF 25. SL PRN ×2 (11:21→11:35)
[2021-09-24 11:23] LABS: ALBUMIN 3.7 g/dL (3.4-5.0); ALBUMIN/GLOBULIN RATIO 0.9 (1.0-1.7); MAGNESIUM 1.9 mg/dL (1.8-2.4); TOTAL BILIRUBIN 0.5 mg/dL (0.2-1.0); TOTAL PROTEIN 7.6 g/dL (6.4-8.2)
[2021-09-24] MEDS ORDERED: IOHEXOL 350 MG/ML 100 ML VIAL. IV ONE (12:00)
--- NOTE | 2021-09-24 13:07 | RAD ---
CTA scan of the Chest with Contrast (Pulmonary Embolism protocol) 09/25/2019 2 Clinical History: Chest pain. Elevated d-dimer. Technique: After the intravenous administration of 100 cc of Omnipaque 350, contiguous, 0.625 mm axia l sections were obtained through the chest. 2 mm axial and 3D MIP coronal and sagittal reconstructed images were obtained. One or more of the following individualized dose reduction techniques were utilized for this study: 1. Automated exposure control. 2. Adjustment of the mA and/or kV according to patient size. 3. Use of iterative reconstruction technique. Findings: Comparison is made to patient's portable chest radiograph performed earlier today. No filling defect is seen within the major branches of either pulmonary artery. There is no CT eviden ce of pulmonary embolism. The heart is mildly enlarged. Atherosclerotic calcification thoracic aorta is seen. There is a common origin of the left common carotid and right common carotid arteries from t he thoracic aortic arch. The right subclavian artery originates as the last branch of the thoracic ao rtic arch and passes posterior to the thoracic esophagus. These findings are normal variations. The t hyroid gland is slightly heterogeneous. Minimal dependent subsegmental atelectasis is seen involving both lungs. No area of consolidation, pl eural effusion or pneumothorax is seen. Images through the upper abdomen demonstrate decreased attenuation liver parenchyma consistent with f atty infiltration. The 2 cm somewhat oval-shaped low-attenuation structure is seen involving the late ral aspect of the right lower liver which may represent a hepatic cyst. Degenerative changes are seen involving the thoracic spine. Impression: There is no CT evidence of pulmonary embolism. Electronically signed by: Scott Cuevas MD (09/24/2021 1:05 PM) [id number]
[2021-09-24] MEDS ORDERED: ACETAMINOPHEN 325 MG TABLET. PO PRN ×2 (13:15→14:00)
[2021-09-24] MEDS ORDERED: MORPHINE SULFATE 4 MG/ML INJ. IV PRN (13:15)
[2021-09-24] MEDS ORDERED: ONDANSETRON PF 4 MG/2 ML VIAL. IVP PRN ×2 (13:15→14:00)
[2021-09-24 13:20] VITALS: BP 128/69
[2021-09-24] MEDS ORDERED: VITA1TAB31 PO (13:32)
[2021-09-24] MEDS ORDERED: EZET10TA20 PO (13:33)
[2021-09-24] MEDS ORDERED: OMEG1CAP27 PO (13:36)
[2021-09-24] MEDS: HEPARIN for SUB-Q USE 5,000 UNIT/ML VIAL. SQ SCH ×2 (14:00→22:00)
[2021-09-24] MEDS ORDERED: ELECTROLYTE (NON-ICU) PROTOCOL. MC PRN (14:00)
[2021-09-24] MEDS ORDERED: oxyCODONE/APAP 5/325 1 TAB TABLET PO PRN ×2 (14:00)
[2021-09-24] MEDS ORDERED: CALCIUM CARBONATE 500 MG TAB.CHEW PO PRN (14:00)
[2021-09-24 15:00] VITALS: BP 115/63
--- NOTE | 2021-09-24 17:14 | EKG ---
[facility] [address] [place] [address] Test Date: 2021-09-24 Test Time: 10:40:49 Pat Name: JOE STERLING Department: Room: Gender: F Software Project Lead: : 1950 Requested By: DONIS GRULLON Order Number: [id number] Reading MD: Measurements Intervals [place] Rate: 74 P: 26 DC: 192 QRS: -24 QRSD: 88 T: 8 QT: 378 QTc: 420 Interpretive Statements SINUS RHYTHM LEFT ATRIAL ABNORMALITY LEFTWARD AXIS ABNORMAL ECG RI6.02 Compared to ECG 09/24/2021 10:39:40 No significant changes
[2021-09-24 19:00] VITALS: BP_SYST 107; BP_SYST 123; BP_DIAS 67; BP_DIAS 83
--- NOTE | 2021-09-24 19:24 | PDOC1 ---
History and Physical Date of Service: DOS: DATE: 09/24/21 TIME: 19:24 Chief Complaint: Chief Complain: Chest pain back pain History of Present Illness: HPI: Patient is a 71 year old female who presents with intermittent chest pain, as well as left-sided thoracic back pain. Symptoms began , progressively worsened. She reported the pain usually occurred with movement and exertion, but the pain worsened acutely today, and it is occurring at rest. She reports mild associated dyspnea. She does describe some mild pleuritic pain. She denies cough or hemoptysis. She denies dizziness, syncope. She denies lower extremity pain or swelling. She has had a previous non-ST elevation [place] several years ago, she has a stent, she describes her right coronary artery stent. She reports compliance with all medication. She has not been on Plavix for many years. 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 She denies having any recent provocative testing, such as stress testing or recent cardiac catheterization. She admits that the pain she is experiencing currently does not feel like her previous [place] symptoms. When I was able to evaluate the patient on the floor she was in bed eating dinner. Said chest pain had improved. Was still feeling some back pain. Said that she previously used to be on Prilosec and was taken off this a few months ago. She is wondering if her symptoms are related to heartburn Past Medical/Surgical History: PMH/PSH: Past Medical History: GERD, High Cholesterol, Heart Disease, Hypertension, [place] Past Surgical History: Other Additional Past Surgical Histo: MYOMECTOMY Smoking Status: Never Smoker Alcohol Use: None Drug Use: None Allergies: Allergies: Coded Allergies: Sulfa (Sulfonamide Antibiotics) (Verified Allergy, Intermediate, Hives, 03/02/18) erythromycin base (Verified Adverse Reaction, Intermediate, Nausea and Vomiting, 03/02/18) Family History: Family History: Hypertension Current Medications: Current Medications Current Medications Aspirin (Aspirin Chewable) 324 mg 1X ONCE PO Last administered on 09/24/21at 11:19; Start 09/24/21 at 11:00; Stop 09/24/21 at 11:01; Status DC Nitroglycerin (Nitrostat) 0.4 mg PRN Q5MIN PRN SL CHEST PAIN Last administered on 09/24/21at 11:35; Start 09/24/21 at 11:00 Iohexol (Omnipaque 350 Mg/ml) 100 ml 1X ONCE IV Last administered on 09/24/21at 12:28; Start 09/24/21 at 12:00; Stop 09/24/21 at 12:01; Status DC Ondansetron HCl (Zofran) 4 mg PRN Q8HRS PRN IVP NAUSEA/VOMITING; Start 09/24/21 at 13:15; Stop 09/25/21 at 13:14 Morphine Sulfate (Morphine Sulfate) 4 mg PRN Q2HR PRN IV PAIN; Start 09/24/21 at 13:15 Acetaminophen (Tylenol) 650 mg PRN Q6HRS PRN PO MILD PAIN / TEMP > 100.3'F; Start 09/24/21 at 13:15 Aspirin (Aspirin Chewable) 81 mg DAILY PO ; Start 09/25/21 at 09:00 EZETIMIBE (Zetia) 10 mg HS PO ; Start 09/24/21 at 21:00 Verapamil HCl (Calan Sr) 180 mg DAILY PO ; Start 09/25/21 at 09:00 Atorvastatin Calcium (Lipitor) 40 mg QHS PO ; Start 09/24/21 at 21:00 Metoprolol Succinate (Toprol Xl) 25 mg DAILY PO ; Start 09/25/21 at 09:00 Ondansetron HCl (Zofran) 4 mg PRN Q6HRS PRN IVP NAUSEA/VOMITING; Start 09/24/21 at 14:00 Calcium Carbonate/ Glycine (Tums) 500 mg PRN Q3HRS PRN PO UPSET STOMACH; Start 09/24/21 at 14:00 Info (Non-Icu Electrolyte Protocol) 1 ea PRN DAILY PRN MC SEE COMMENTS; Start 09/24/21 at 14:00 Oxycodone/ Acetaminophen (Percocet 5/325) 1 tab PRN Q4HRS PRN PO MILD PAIN, 1ST CHOICE; Start 09/24/21 at 14:00 Oxycodone/ Acetaminophen (Percocet 5/325) 2 tab PRN Q4HRS PRN PO MODERATE PAIN, SEVERE PAIN; Start 09/24/21 at 14:00 Acetaminophen (Tylenol) 650 mg PRN Q6HRS PRN PO Headaches, Temp > 101.5F; Start 09/24/21 at 14:00 Senna/Docusate Sodium (Senna Plus) 1 tab BID PO ; Start 09/24/21 at 21:00 Heparin Sodium (Porcine) (Heparin Sodium) 5,000 unit Q8HRS SQ ; Start 09/24/21 at 14:00 Active Scripts Active Reported Fish Oil 1,000 Mg Softgel (Cascade-3 Fatty Acids/Fish Oil) 1 Each Capsule 1 Cap PO BID 30 Days WITH MEALS Zetia (Ezetimibe) 10 Mg Tablet 1 Tab PO HS 30 Days D3 + K2 Dots 1,000 Units Tab (Vitamin D3/Vitamin K2) 1 Each Tab.rapdis 1 Tab PO DAILY 30 Days Verapamil Er (Verapamil Hcl) 180 Mg Tablet.er 180 Mg PO DAILY Crestor (Rosuvastatin Calcium) 40 Mg Tablet 40 Mg PO HS Metoprolol Succinate ( Xl ) (Metoprolol Succinate) 25 Mg Tab.er.24h Unknown Dose PO DAILY Aspirin 81 Mg Tab.chew 1 Tab PO DAILY ROS: Review of Systems Review of System Unless noted in HPI 14 point review of systems was negative Physical Exam: Vital Signs: Vital Signs Date Time Temp Pulse Resp B/P (MAP) Pulse Ox O2 Delivery O2 Flow Rate FiO2 09/24/21 19:00 97.7 64 18 107/67 (80) 98 Room Air 97.7 Physcial Exam: GEN: No apparent distress. Alert and oriented HEENT: Normal cephalic, atraumatic, external auditory canals are patent EYES: Extraocular muscles are intact, pupil are equally round and reactive to light and accommodation MUSCULOSKELETAL: Well developed , well nourished, good range of motion ENDOCRINE: No thyromegaly was palpated LYMPHATICS: No cervical chain or axillary nodes were noted HEMATOPOIETIC: No bruising NECK: Supple, no JVD, no thyromegaly was noted LUNGS: Clear to auscultation in all lung dasilva without rhonchi or wheezing HEART: RRR, S!, S2 present. Peripheral pulses intact, no obvious murmurs noted ABDOMEN: Soft, nontender. Positive bowel sounds, no organomegaly, normal bowel sounds EXTREMITIES: Without clubbing, cyanosis, or edema. Pedal pulses intact. Negative Homans sign NEUROLOGIC: Normal speech and tone. A&O x 3, moves all extremities, no obvious focal deficits PSYCHIATRIC: Normal affect, normal mood. Stable SKIN: No ulcerations or rashes, good skin turgor, no jaundice VASCULAR: Good capillary refill, neurovascular bundle appears to be intact Labs: Labs: Laboratory Tests Test 09/24/21 10:46 09/24/21 15:00 09/24/21 16:35 White Blood Count 6.0 x10^3/uL (4.0-11.0) Red Blood Count 4.60 x10^6/uL (3.50-5.40) Hemoglobin 13.8 g/dL (12.0-15.5) Hematocrit 43.5 % (36.0-47.0) Mean Corpuscular Volume 95 fL (79-100) Mean Corpuscular Hemoglobin 30 pg (25-35) Mean Corpuscular Hemoglobin Concent 32 g/dL (31-37) Red Cell Distribution Width 14.3 % (11.5-14.5) Platelet Count 150 x10^3/uL (140-400) Neutrophils (%) (Auto) 62 % (31-73) Lymphocytes (%) (Auto) 29 % (24-48) Monocytes (%) (Auto) 8 % (0-9) Eosinophils (%) (Auto) 1 % (0-3) Basophils (%) (Auto) 1 % (0-3) Neutrophils # (Auto) 3.7 x10^3/uL (1.8-7.7) Lymphocytes # (Auto) 1.7 x10^3/uL (1.0-4.8) Monocytes # (Auto) 0.5 x10^3/uL (0.0-1.1) Eosinophils # (Auto) 0.1 x10^3/uL (0.0-0.7) Basophils # (Auto) 0.0 x10^3/uL (0.0-0.2) D-Dimer (Hiwot) 1.25 ug/mlFEU (0.00-0.50) Sodium Level 143 mmol/L (136-145) Potassium Level 3.7 mmol/L (3.5-5.1) Chloride Level 104 mmol/L (98-107) Carbon Dioxide Level 28 mmol/L (21-32) Anion Gap 11 (6-14) Blood Urea Nitrogen 13 mg/dL (7-20) Creatinine 0.7 mg/dL (0.6-1.0) Estimated GFR (Cockcroft-Gault) 100.4 BUN/Creatinine Ratio 19 (6-20) Glucose Level 124 mg/dL (70-99) Calcium Level 8.9 mg/dL (8.5-10.1) Magnesium Level 1.9 mg/dL (1.8-2.4) Total Bilirubin 0.5 mg/dL (0.2-1.0) Aspartate Amino Transf (AST/SGOT) 27 U/L (15-37) Alanine Aminotransferase (ALT/SGPT) 43 U/L (14-59) Alkaline Phosphatase 91 U/L (46-116) Troponin I High Sensitivity 7 ng/L (4-50) 9 ng/L (4-50) 7 ng/L (4-50) PK-Ovt-J-Type Natriuretic Peptide 114 pg/mL (0-124) Total Protein 7.6 g/dL (6.4-8.2) Albumin 3.7 g/dL (3.4-5.0) Albumin/Globulin Ratio 0.9 (1.0-1.7) Lipase 91 U/L (73-393) Laboratory Tests Test 09/24/21 10:46 09/24/21 15:00 09/24/21 16:35 White Blood Count 6.0 x10^3/uL (4.0-11.0) Red Blood Count 4.60 x10^6/uL (3.50-5.40) Hemoglobin 13.8 g/dL (12.0-15.5) Hematocrit 43.5 % (36.0-47.0) Mean Corpuscular Volume 95 fL (79-100) Mean Corpuscular Hemoglobin 30 pg (25-35) Mean Corpuscular Hemoglobin Concent 32 g/dL (31-37) Red Cell Distribution Width 14.3 % (11.5-14.5) Platelet Count 150 x10^3/uL (140-400) Neutrophils (%) (Auto) 62 % (31-73) Lymphocytes (%) (Auto) 29 % (24-48) Monocytes (%) (Auto) 8 % (0-9) Eosinophils (%) (Auto) 1 % (0-3) Basophils (%) (Auto) 1 % (0-3) Neutrophils # (Auto) 3.7 x10^3/uL (1.8-7.7) Lymphocytes # (Auto) 1.7 x10^3/uL (1.0-4.8) Monocytes # (Auto) 0.5 x10^3/uL (0.0-1.1) Eosinophils # (Auto) 0.1 x10^3/uL (0.0-0.7) Basophils # (Auto) 0.0 x10^3/uL (0.0-0.2) D-Dimer (Hiwot) 1.25 ug/mlFEU (0.00-0.50) Sodium Level 143 mmol/L (136-145) Potassium Level 3.7 mmol/L (3.5-5.1) Chloride Level 104 mmol/L (98-107) Carbon Dioxide Level 28 mmol/L (21-32) Anion Gap 11 (6-14) Blood Urea Nitrogen 13 mg/dL (7-20) Creatinine 0.7 mg/dL (0.6-1.0) Estimated GFR (Cockcroft-Gault) 100.4 BUN/Creatinine Ratio 19 (6-20) Glucose Level 124 mg/dL (70-99) Calcium Level 8.9 mg/dL (8.5-10.1) Magnesium Level 1.9 mg/dL (1.8-2.4) Total Bilirubin 0.5 mg/dL (0.2-1.0) Aspartate Amino Transf (AST/SGOT) 27 U/L (15-37) Alanine Aminotransferase (ALT/SGPT) 43 U/L (14-59) Alkaline Phosphatase 91 U/L (46-116) Troponin I High Sensitivity 7 ng/L (4-50) 9 ng/L (4-50) 7 ng/L (4-50) BR-Tdd-G-Type Natriuretic Peptide 114 pg/mL (0-124) Total Protein 7.6 g/dL (6.4-8.2) Albumin 3.7 g/dL (3.4-5.0) Albumin/Globulin Ratio 0.9 (1.0-1.7) Lipase 91 U/L (73-393) Assessment/Plan Assessment/Plan Chest pain suspect secondary to GERD vs ACS?, significant cardiac history. History hypertension hyperlipidemia -Admit to telemetry floor -Trend troponins, although suspect pain is not cardiac in nature -As needed pain control -Start Protonix -PT OT -Home meds resumed as indicated -DVT prophylaxis Justifications for Admission Other Justification MIRIAN KHALIL MD Sep 24, 2021 19:24
[2021-09-24] MEDS ORDERED: EZETIMIBE 10 MG TABLET. PO SCH (21:00)
[2021-09-24] MEDS ORDERED: ATORVASTATIN CALCIUM 40 MG TABLET. PO SCH (21:00)
[2021-09-24] MEDS: SENNOSIDES/DOCUSATE 8.6/50MG TABLET. PO SCH (22:10)
[2021-09-24 22:31] VITALS: BP 140/77
[2021-09-25 02:33] VITALS: BP 125/68
[2021-09-25] MEDS: HEPARIN for SUB-Q USE 5,000 UNIT/ML VIAL. SQ SCH (06:00)
[2021-09-25 07:00] VITALS: BP 121/69
[2021-09-25] MEDS ORDERED: PANTOPRAZOLE 40 MG TABLET.DR. PO SCH (07:30)
[2021-09-25] MEDS: SENNOSIDES/DOCUSATE 8.6/50MG TABLET. PO SCH (08:17)
[2021-09-25] MEDS ORDERED: METOPROLOL SUCC 24HR ER 25 MG TAB.ER.24H. PO SCH (09:00)
[2021-09-25] MEDS ORDERED: ASPIRIN CHEWABLE 81 MG TABLET. PO SCH (09:00)
[2021-09-25] MEDS ORDERED: VERAPAMIL SR 180 MG TABLET.ER. PO SCH (09:00)
--- NOTE | 2021-09-25 09:46 | PDOC2 ---
CONSULT Date of Consult Date of Consult DATE: 09/25/21 TIME: 09:46 Reason for Consult Reason for Consult: Chest pain Referring Physician Referring Physician: Dr. Dixon Identification/Chief Complaint Chief Complaint Chest pain Source Source: Chart review, Patient History of Present Illness Reason for Visit: 71-year-old female with history of coronary artery disease presented complaining of mainly back pain but with intermittent episodes of left-sided aching chest pain not related to exertion but worse with movement of her body. She denied any orthopnea/PND, palpitations or syncope. She stated that this is different than the pain she had prior to her stent placement in the past. She usually follows with Dr. Cardona at [facility] Past Medical History Past Medical History Coronary artery disease s/p PCI/stent placement to LAD Hypertension Hyperlipidemia GERD Family History Family History Not contributory Social History Social History Patient denied any smoking, alcohol or drug use Current Problem List Problem List Problems Medical Problems: (1) Chest pain Status: Acute (2) Coronary artery disease Status: Acute (3) History of myocardial infarction Status: Acute Current Medications Current Medications Current Medications Aspirin (Aspirin Chewable) 324 mg 1X ONCE PO Last administered on 09/24/21at 11:19; Start 09/24/21 at 11:00; Stop 09/24/21 at 11:01; Status DC Nitroglycerin (Nitrostat) 0.4 mg PRN Q5MIN PRN SL CHEST PAIN Last administered on 09/24/21at 11:35; Start 09/24/21 at 11:00 Iohexol (Omnipaque 350 Mg/ml) 100 ml 1X ONCE IV Last administered on 09/24/21at 12:28; Start 09/24/21 at 12:00; Stop 09/24/21 at 12:01; Status DC Ondansetron HCl (Zofran) 4 mg PRN Q8HRS PRN IVP NAUSEA/VOMITING; Start 09/24/21 at 13:15; Stop 09/25/21 at 13:14 Morphine Sulfate (Morphine Sulfate) 4 mg PRN Q2HR PRN IV PAIN; Start 09/24/21 at 13:15 Acetaminophen (Tylenol) 650 mg PRN Q6HRS PRN PO MILD PAIN / TEMP > 100.3'F Last administered on 09/24/21at 22:17; Start 09/24/21 at 13:15 Aspirin (Aspirin Chewable) 81 mg DAILY PO Last administered on 09/25/21at 08:18; Start 09/25/21 at 09:00 EZETIMIBE (Zetia) 10 mg HS PO Last administered on 09/24/21at 22:10; Start 09/24/21 at 21:00 Verapamil HCl (Calan Sr) 180 mg DAILY PO Last administered on 09/25/21at 08:18; Start 09/25/21 at 09:00 Atorvastatin Calcium (Lipitor) 40 mg QHS PO Last administered on 09/24/21at 22:10; Start 09/24/21 at 21:00 Metoprolol Succinate (Toprol Xl) 25 mg DAILY PO Last administered on 09/25/21at 08:18; Start 09/25/21 at 09:00 Ondansetron HCl (Zofran) 4 mg PRN Q6HRS PRN IVP NAUSEA/VOMITING; Start 09/24/21 at 14:00 Calcium Carbonate/ Glycine (Tums) 500 mg PRN Q3HRS PRN PO UPSET STOMACH; Start 09/24/21 at 14:00 Info (Non-Icu Electrolyte Protocol) 1 ea PRN DAILY PRN MC SEE COMMENTS; Start 09/24/21 at 14:00 Oxycodone/ Acetaminophen (Percocet 5/325) 1 tab PRN Q4HRS PRN PO MILD PAIN, 1ST CHOICE; Start 09/24/21 at 14:00 Oxycodone/ Acetaminophen (Percocet 5/325) 2 tab PRN Q4HRS PRN PO MODERATE PAIN, SEVERE PAIN; Start 09/24/21 at 14:00 Acetaminophen (Tylenol) 650 mg PRN Q6HRS PRN PO Headaches, Temp > 101.5F; Start 09/24/21 at 14:00 Senna/Docusate Sodium (Senna Plus) 1 tab BID PO Last administered on 09/25/21at 08:17; Start 09/24/21 at 21:00 Heparin Sodium (Porcine) (Heparin Sodium) 5,000 unit Q8HRS SQ ; Start 09/24/21 at 14:00 Pantoprazole Sodium (Protonix) 40 mg DAILYAC PO Last administered on 09/25/21at 08:18; Start 09/25/21 at 07:30 Active Scripts Active Reported Fish Oil 1,000 Mg Softgel ([place]-3 Fatty Acids/Fish Oil) 1 Each Capsule 1 Cap PO BID 30 Days WITH MEALS Zetia (Ezetimibe) 10 Mg Tablet 1 Tab PO HS 30 Days D3 + K2 Dots 1,000 Units Tab (Vitamin D3/Vitamin K2) 1 Each Tab.rapdis 1 Tab PO DAILY 30 Days Verapamil Er (Verapamil Hcl) 180 Mg Tablet.er 180 Mg PO DAILY Crestor (Rosuvastatin Calcium) 40 Mg Tablet 40 Mg PO HS Metoprolol Succinate ( Xl ) (Metoprolol Succinate) 25 Mg Tab.er.24h Unknown Dose PO DAILY Aspirin 81 Mg Tab.chew 1 Tab PO DAILY Allergies Allergies: Coded Allergies: Sulfa (Sulfonamide Antibiotics) (Verified Allergy, Intermediate, Hives, 03/02/18) erythromycin base (Verified Adverse Reaction, Intermediate, Nausea and Vomiting, 03/02/18) ROS PSYCHOLOGICAL ROS: No: Hallucinations Eyes: No Loss of vision HEENT: No: Epistaxis Respiratory: No: Shortness of breath Cardiovascular: yes Chest Pain Gastrointestinal: No Vomiting Genitourinary: No Hematuria Neurological: No Seizures Skin: No Rash Physical Exam General: Alert, Oriented X3 HEENT: Atraumatic Lungs: Clear to auscultation Heart: Regular rate Abdomen: Soft Extremities: No edema Psych/Mental Status: Mood NL Vitals VITALS Vital Signs Date Time Temp Pulse Resp B/P (MAP) Pulse Ox O2 Delivery O2 Flow Rate FiO2 09/25/21 08:18 62 125/68 09/25/21 08:00 Room Air 09/25/21 07:00 97.6 16 95 97.6 Labs Labs Laboratory Tests Test 09/24/21 10:46 09/24/21 15:00 09/24/21 16:35 White Blood Count 6.0 x10^3/uL (4.0-11.0) Red Blood Count 4.60 x10^6/uL (3.50-5.40) Hemoglobin 13.8 g/dL (12.0-15.5) Hematocrit 43.5 % (36.0-47.0) Mean Corpuscular Volume 95 fL (79-100) Mean Corpuscular Hemoglobin 30 pg (25-35) Mean Corpuscular Hemoglobin Concent 32 g/dL (31-37) Red Cell Distribution Width 14.3 % (11.5-14.5) Platelet Count 150 x10^3/uL (140-400) Neutrophils (%) (Auto) 62 % (31-73) Lymphocytes (%) (Auto) 29 % (24-48) Monocytes (%) (Auto) 8 % (0-9) Eosinophils (%) (Auto) 1 % (0-3) Basophils (%) (Auto) 1 % (0-3) Neutrophils # (Auto) 3.7 x10^3/uL (1.8-7.7) Lymphocytes # (Auto) 1.7 x10^3/uL (1.0-4.8) Monocytes # (Auto) 0.5 x10^3/uL (0.0-1.1) Eosinophils # (Auto) 0.1 x10^3/uL (0.0-0.7) Basophils # (Auto) 0.0 x10^3/uL (0.0-0.2) D-Dimer (Hiwot) 1.25 ug/mlFEU (0.00-0.50) Sodium Level 143 mmol/L (136-145) Potassium Level 3.7 mmol/L (3.5-5.1) Chloride Level 104 mmol/L (98-107) Carbon Dioxide Level 28 mmol/L (21-32) Anion Gap 11 (6-14) Blood Urea Nitrogen 13 mg/dL (7-20) Creatinine 0.7 mg/dL (0.6-1.0) Estimated GFR (Cockcroft-Gault) 100.4 BUN/Creatinine Ratio 19 (6-20) Glucose Level 124 mg/dL (70-99) Calcium Level 8.9 mg/dL (8.5-10.1) Magnesium Level 1.9 mg/dL (1.8-2.4) Total Bilirubin 0.5 mg/dL (0.2-1.0) Aspartate Amino Transf (AST/SGOT) 27 U/L (15-37) Alanine Aminotransferase (ALT/SGPT) 43 U/L (14-59) Alkaline Phosphatase 91 U/L (46-116) Troponin I High Sensitivity 7 ng/L (4-50) 9 ng/L (4-50) 7 ng/L (4-50) AJ-Bat-D-Type Natriuretic Peptide 114 pg/mL (0-124) Total Protein 7.6 g/dL (6.4-8.2) Albumin 3.7 g/dL (3.4-5.0) Albumin/Globulin Ratio 0.9 (1.0-1.7) Lipase 91 U/L (73-393) Laboratory Tests Test 09/24/21 10:46 09/24/21 15:00 09/24/21 16:35 White Blood Count 6.0 x10^3/uL (4.0-11.0) Red Blood Count 4.60 x10^6/uL (3.50-5.40) Hemoglobin 13.8 g/dL (12.0-15.5) Hematocrit 43.5 % (36.0-47.0) Mean Corpuscular Volume 95 fL (79-100) Mean Corpuscular Hemoglobin 30 pg (25-35) Mean Corpuscular Hemoglobin Concent 32 g/dL (31-37) Red Cell Distribution Width 14.3 % (11.5-14.5) Platelet Count 150 x10^3/uL (140-400) Neutrophils (%) (Auto) 62 % (31-73) Lymphocytes (%) (Auto) 29 % (24-48) Monocytes (%) (Auto) 8 % (0-9) Eosinophils (%) (Auto) 1 % (0-3) Basophils (%) (Auto) 1 % (0-3) Neutrophils # (Auto) 3.7 x10^3/uL (1.8-7.7) Lymphocytes # (Auto) 1.7 x10^3/uL (1.0-4.8) Monocytes # (Auto) 0.5 x10^3/uL (0.0-1.1) Eosinophils # (Auto) 0.1 x10^3/uL (0.0-0.7) Basophils # (Auto) 0.0 x10^3/uL (0.0-0.2) D-Dimer (Hiwot) 1.25 ug/mlFEU (0.00-0.50) Sodium Level 143 mmol/L (136-145) Potassium Level 3.7 mmol/L (3.5-5.1) Chloride Level 104 mmol/L (98-107) Carbon Dioxide Level 28 mmol/L (21-32) Anion Gap 11 (6-14) Blood Urea Nitrogen 13 mg/dL (7-20) Creatinine 0.7 mg/dL (0.6-1.0) Estimated GFR (Cockcroft-Gault) 100.4 BUN/Creatinine Ratio 19 (6-20) Glucose Level 124 mg/dL (70-99) Calcium Level 8.9 mg/dL (8.5-10.1) Magnesium Level 1.9 mg/dL (1.8-2.4) Total Bilirubin 0.5 mg/dL (0.2-1.0) Aspartate Amino Transf (AST/SGOT) 27 U/L (15-37) Alanine Aminotransferase (ALT/SGPT) 43 U/L (14-59) Alkaline Phosphatase 91 U/L (46-116) Troponin I High Sensitivity 7 ng/L (4-50) 9 ng/L (4-50) 7 ng/L (4-50) GF-Tjr-Z-Type Natriuretic Peptide 114 pg/mL (0-124) Total Protein 7.6 g/dL (6.4-8.2) Albumin 3.7 g/dL (3.4-5.0) Albumin/Globulin Ratio 0.9 (1.0-1.7) Lipase 91 U/L (73-393) Assessment/Plan Assessment/Plan 1. Chest pain with atypical features, most probably musculoskeletal. Myocardial infarction has been ruled out. Consider ischemic evaluation as an outpatient with primary meter engineer. 2. Coronary artery disease s/p PCI/stent placement to LAD in the past with cardiac catheterization in 2018 showing patent stent. Continue current se condary prevention measures. 3. Hypertension: Controlled 4. Hyperlipidemia: Continue statins and Zetia 5. GERD: Continue PPIs Thank you for your consultation LUIS DANIEL MCMILLAN MD Sep 25, 2021 09:46
[2021-09-25 10:45] VITALS: BP 138/76
[2021-09-25] MEDS ORDERED: NITR0.4T24 SL (11:13)
[2021-09-25] MEDS ORDERED: PANT40TA77 PO (11:13)
--- NOTE | 2021-09-25 11:14 | SNU/HH DC ---
DISCHARGE WITH HOME HEALTH DISCHARGE INFORMATION: Final Diagnosis: Problems Medical Problems: (1) Chest pain Status: Acute (2) Coronary artery disease Status: Acute (3) History of myocardial infarction Status: Acute Condition on Discharge: Stable CODE STATUS: Code Status: Full HOME HEALTH: Face to Face: I certify this patient is under my care and that I, or a nurse practitioner or physician's diploma dental assistant working with me, had a face to face encounter that meets the physician face to face encounter requirements with this patient on []. Medical Complications: Other (Weakness) Chcf For: Assess Cardiopulm Status RN For Eval/Treatment: Yes Physical Therapy For: Evalulation/Treatment Occupational Therapy For: Evaluation/Treatment Home Health Aide For: Self-care SENIOR RD ENGINEER For: Community Resources Pt Meets Homebound Status: Poor coordination w/ amb. POST DISCHARGE ORDERS: Activity Instructions for Disc: Activity as tolerated DIET AFTER DISCHARGE: Cardiac CERTIFICATION STATEMENT: Certification Statement: Certification Statement: Based on the above finding, I certify that this patient is confined to the home and needs intermittent half-way care, physical therapy and/or speech therapy, or continues to need occupational therapy.~ This patient is under my care, and I have initiated the establishment of the plan of care.~ This patient will be followed by myself or a community physician who will periodically review the plan of care. Home Meds Active Scripts Pantoprazole Sodium (PANTOPRAZOLE SODIUM ) 40 Mg Tablet.dr, 40 MG PO DAILYAC for . for 30 Days, #30 TAB.SR Prov:CASTLE,NIAL K III DO 09/25/21 Nitroglycerin (NITROSTAT) 0.4 Mg Tab.subl, 0.4 MG SL PRN Q5MIN PRN for CHEST PAIN for 30 Days, #25 TAB Prov:CASTLE,NIAL K III DO 09/25/21 Reported Medications [place]-3 Fatty Acids/Fish Oil (FISH OIL 1,000 MG SOFTGEL) 1 Each Capsule, 1 CAP PO BID for cardiac for 30 Days, #60 CAP 0 Refills WITH MEALS 09/24/21 Ezetimibe (ZETIA) 10 Mg Tablet, 1 TAB PO HS for cholesterol for 30 Days, #30 TAB 0 Refills 09/24/21 Vitamin D3/Vitamin K2 (D3 + K2 DOTS 1,000 UNITS TAB) 1 Each Tab.rapdis, 1 TAB PO DAILY for replacement for 30 Days, #30 TAB 0 Refills 09/24/21 Verapamil Hcl (VERAPAMIL ER) 180 Mg Tablet.er, 180 MG PO DAILY, TAB.SR 03/02/18 Rosuvastatin Calcium (CRESTOR) 40 Mg Tablet, 40 MG PO HS for FOR CHOLESTEROL, #30 TAB 0 Refills 03/02/18 Metoprolol Succinate (METOPROLOL SUCCINATE ( XL )) 25 Mg Tab.er.24h, PO DAILY, #30 TAB 5 Refills 03/02/18 Aspirin (ASPIRIN) 81 Mg Tab.chew, 1 TAB PO DAILY, #30 TAB 3 Refills 03/02/18 DINORA BUNCH III DO Sep 25, 2021 11:14
--- NOTE | 2021-09-25 12:38 | NUR ---
SS following for discharge planning. SS reviewed pt chart and discussed with pt RN. Pt is from home and is currently on room air. Cardiology following. Discharge order on the chart for home with self care.
--- NOTE | 2021-09-25 14:00 | NUR ---
DISCHARGED TO HOME. DISCHARGE INSTRUCTIONS GIVEN. PIV AND HEART MONITOR REMOVED. ESCORTED PATIENT OFF UNIT PER WHEELCHAIR INTO A PRIVATE VEHICLE.
--- NOTE | 2021-09-26 13:46 | DS ---
DATE OF DISCHARGE: 09/25/2021 ADMITTING DIAGNOSIS: Chest pain. DISCHARGE DIAGNOSES: Atypical chest pain, previous history of myocardial infarction. CONSULTS: Cardiology. PROCEDURES: None. HOSPITAL COURSE: The patient is a pleasant 71-year-old female who presented with chest pain. We trended the troponins. Consult Cardiology. Check an echo and yesterday when I saw and examined the patient, she was doing well. Cardiology felt like this was musculoskeletal. We discharged to home. DISPOSITION: Home. ACTIVITY: As tolerated. DIET: Low sodium. DISCHARGE MEDICATIONS: Please see the MRAD. TOTAL TIME: 34 minutes. SOLANGE/LOIDA/MOH DR: SOLANGE/delfin TID: [id number]
== END 2021-09-25 14:00 | disposition home or self-care (01) ==
LOC: ER 10:32 → 6 SOUTH 12:18
PROVIDERS: ADMIT Student in an Organized Health Care Education/Training Program; ATTEND Student in an Organized Health Care Education/Training Program
DX: R07.89 Other chest pain (principal); I10 Essential (primary) hypertension; K21.9 Gastro-esophageal reflux disease without esophagitis; E78.00 Pure hypercholesterolemia, unspecified; E78.5 Hyperlipidemia, unspecified; I25.10 Atherosclerotic heart disease of native coronary artery without angina pectoris; I25.2 Old myocardial infarction; Z95.5 Presence of coronary angioplasty implant and graft; Z79.899 Other long term (current) drug therapy; Z98.890 Other specified postprocedural states; Z79.82 Long term (current) use of aspirin
CPT/HCPCS: 36415; 71045; 71275; 80053; 83690; 83735; 83880; 84484; 85025; 85379; 93005; 99285; G0378; Q9967; G0379